=== PATIENT | female | born 1975 | race African-American/Black ===

== ENCOUNTER 2023-04-08 15:17 | Emergency (ER) | payer BC, OTHER ==
[~2023-04-08 15:17] MED LIST: Iopamidol 370 76% 100 ML VIAL ONE
[2023-04-08] MEDS ORDERED: Ketorolac Tromethamine 30 MG/ML VIAL ONE (16:07)
[2023-04-08 16:26] LABS: #Eosinphils 0.1 10x3/uL (0.0-0.5); #Monocytes 0.5 10x3/uL (0.0-1.1); #Neutrophils 5.7 10x3/uL (1.5-8.4); %Basophils 0.2 % (0.0-2.0); %Eosinophils 1.5 % (0.0-6.0); %Lymphocytes 21.6 % (18.0-47.0); %Monocytes 6.4 % (0.0-10.0); %Neutrophils 70.2 % (40.0-75.0); Hemoglobin 11.9 g/dL (12.0-15.5); Mean Corpuscular HGB CONC 31.3 g/dL (32.0-36.0); Mean Corpuscular Hemoglobin 29.9 pg (27.0-33.0); Mean Corpuscular Volume 95.5 fl (81.6-98.3); Mean Platelet Volume 9.4 fl (7.4-10.4); Platelet Count 232 10x3/uL (150-450); RBC Distribution Width 14.5 % (11.5-14.5); Red Blood Cell (RBC) Count 3.98 10x6/uL (3.90-5.03); White Blood Cell (WBC) Count 8.1 10x3/uL (3.5-10.5)
[2023-04-08 16:40] LABS: ALT (SGPT) 26 U/L (8-55); AST (SGOT) 21 U/L (5-34); Albumin 4.3 g/dL (3.5-5.0); Alkaline Phosphatase 67 U/L (40-110); Anion Gap 14 mmol/L (10-20); BUN (Urea Nitrogen) 14 mg/dL (7.0-18.7); Bilirubin, Total 0.4 mg/dL (0.2-1.2); Calc. Creatinine Clearance 0 mL/min (70-130); Calcium 8.9 mg/dL (7.8-10.44); Carbon Dioxide 32 mmol/L (22-29); Chloride 101 mmol/L (98-107); Estimated GFR 71; Globulin 2.9 g/dL (2.4-3.5); Glucose 94 mg/dL (70-105); Potassium 4.6 mmol/L (3.5-5.1); Protein, Total 7.2 g/dL (6.0-8.3); Sodium 142 mmol/L (136-145)
[2023-04-08] MEDS ORDERED: Labetalol HCl 100 MG/20 ML VIAL ONE (17:30)
== END 2023-04-08 20:08 | disposition home or self-care (01) ==
LOC: CSHERS 15:17
DX: S13.4XXA Sprain of ligaments of cervical spine, initial encounter (principal); I10 Essential (primary) hypertension; E11.40 Type 2 diabetes mellitus with diabetic neuropathy, unspecified; V49.40XA Driver injured in collision with unspecified motor vehicles in traffic accident, initial encounter
CPT/HCPCS: 71045; 71275; 80053; 83605; 84484; 85025; 85379; 93005; 96361; 96374; 96375; J1885; Q9967

== ENCOUNTER 2023-11-29 13:51 | Observation (INO) | payer BC ==
[2023-11-29 16:30] LABS: SARS-CoV-2 NAA Rapid Test Not Detected (NotDetected)
[2023-11-29] MEDS ORDERED: Nitroglycerin 0.4 MG TAB 1 EACH ONE (16:33)
[2023-11-29] MEDS ORDERED: Aspirin Chewable 81 MG TAB ONE (16:33)
[2023-11-29 16:42] LABS: #Monocytes 0.7 10x3/uL (0.0-1.1); #Neutrophils 9.1 10x3/uL (1.5-8.4); %Basophils 0.3 % (0.0-2.0); %Eosinophils 0.3 % (0.0-6.0); %Lymphocytes 14.8 % (18.0-47.0); %Monocytes 5.9 % (0.0-10.0); %Neutrophils 78.4 % (40.0-75.0); Hematocrit 37.9 % (34.9-44.5); Hemoglobin 12.5 g/dL (12.0-15.5); Mean Corpuscular Hemoglobin 31.6 pg (27.0-33.0); Mean Corpuscular Volume 95.7 fl (81.6-98.3); Mean Platelet Volume 9.5 fl (7.4-10.4); Platelet Count 294 10x3/uL (150-450); RBC Distribution Width 14.9 % (11.5-14.5); Red Blood Cell (RBC) Count 3.96 10x6/uL (3.90-5.03); White Blood Cell (WBC) Count 11.6 10x3/uL (3.5-10.5)
[2023-11-29 16:50] LABS: ALT (SGPT) 16 U/L (8-55); AST (SGOT) 18 U/L (5-34); Alkaline Phosphatase 78 U/L (40-110); Anion Gap 11 mmol/L (10-20); BUN (Urea Nitrogen) 16 mg/dL (7.0-18.7); Bilirubin, Total 0.2 mg/dL (0.2-1.2); Calc. Creatinine Clearance 0 mL/min (70-130); Calcium 9.4 mg/dL (7.8-10.44); Carbon Dioxide 32 mmol/L (22-29); Chloride 103 mmol/L (98-107); Estimated GFR 59; Globulin 3.7 g/dL (2.4-3.5); Glucose 107 mg/dL (70-105); Potassium 4.3 mmol/L (3.5-5.1); Protein, Total 7.7 g/dL (6.0-8.3); Sodium 142 mmol/L (136-145)
[2023-11-29 16:57] LABS: Troponin I Less than 0.010 ng/mL (< 0.028)
[2023-11-29] MEDS ORDERED: Labetalol HCl 100 MG/20 ML VIAL ONE (17:34)
[2023-11-29] MEDS: Levothyroxine Sodium 50 MCG TAB PO SCH (19:18)
[2023-11-29] MEDS: Lisinopril 20 MG TAB PO SCH (19:18)
[2023-11-29] MEDS ORDERED: cefTRIAXone (ROCEPHIN) 2 GM VIAL ONE (20:51)
[2023-11-29] MEDS ORDERED: Azithromycin 500 MG VIAL ONE (20:51)
[2023-11-29] MEDS ORDERED: Ondansetron PF 4 MG/2 ML Vial IVP PRN (21:42)
[2023-11-29] MEDS ORDERED: Ondansetron ODT 4 MG TAB PO PRN (21:42)
[2023-11-29] MEDS ORDERED: Acetaminophen 650 MG Suppository PR PRN (21:42)
[2023-11-29 22:16] VITALS: BMI 66.6
[2023-11-29] MEDS ORDERED: Zolpidem Tartrate 5 MG TAB ONE (22:19)
[2023-11-29] MEDS: Zolpidem Tartrate 5 MG TAB PO PRN (22:20)
[2023-11-30 04:12] LABS: #Eosinphils 0.1 10x3/uL (0.0-0.5); #Monocytes 0.7 10x3/uL (0.0-1.1); #Neutrophils 7.1 10x3/uL (1.5-8.4); %Basophils 0.3 % (0.0-2.0); %Eosinophils 0.6 % (0.0-6.0); %Lymphocytes 22.3 % (18.0-47.0); %Monocytes 6.6 % (0.0-10.0); %Neutrophils 69.9 % (40.0-75.0); Hematocrit 35.4 % (34.9-44.5); Hemoglobin 11.2 g/dL (12.0-15.5); Mean Corpuscular HGB CONC 31.6 g/dL (32.0-36.0); Mean Corpuscular Hemoglobin 30.7 pg (27.0-33.0); Mean Platelet Volume 9.3 fl (7.4-10.4); Platelet Count 285 10x3/uL (150-450); RBC Distribution Width 15.1 % (11.5-14.5); Red Blood Cell (RBC) Count 3.65 10x6/uL (3.90-5.03); White Blood Cell (WBC) Count 10.1 10x3/uL (3.5-10.5)
[2023-11-30 04:24] LABS: Anion Gap 12 mmol/L (10-20); BUN (Urea Nitrogen) 14 mg/dL (7.0-18.7); Calc. Creatinine Clearance 185 mL/min (70-130); Calcium 8.8 mg/dL (7.8-10.44); Carbon Dioxide 32 mmol/L (22-29); Chloride 102 mmol/L (98-107); Estimated GFR 74; Glucose 108 mg/dL (70-105); Potassium 3.7 mmol/L (3.5-5.1); Sodium 142 mmol/L (136-145)
[2023-11-30] MEDS: Levothyroxine Sodium 125 MCG TAB PO SCH (06:15)
[2023-11-30 06:34] VITALS: BP 147/96
[2023-11-30] MEDS ORDERED: Acetaminophen 325 MG TAB ONE (08:04)
[2023-11-30] MEDS: Lisinopril 20 MG TAB PO SCH (08:21)
[2023-11-30] MEDS: Acetaminophen 325 MG TAB PO PRN (08:23)
[2023-11-30] MEDS ORDERED: Sodium Chloride 0.9% 500 ML IV SCH (11:00)
[2023-11-30] MEDS ORDERED: Metoprolol Tartrate 25 MG TAB PO SCH (11:00)
[2023-11-30 13:27] LABS: Hemoglobin A1c 5.5 % (4.0-6.0)
[2023-11-30] MEDS ORDERED: Azithromycin 500 MG in Sodium Chloride 0.9% 250 ML 250 ML IVPB SCH (21:00)
[2023-11-30] MEDS ORDERED: cefTRIAXone\\ROCEPHIN 1 GM in Sodium Chloride 0.9% 100 ML IVPB SCH (22:00)
== END 2023-11-30 12:37 | disposition left against medical advice (07) ==
LOC: CSHERS 13:51 → CSHERHOLD 20:56
PROVIDERS: ADMIT Student in an Organized Health Care Education/Training Program; ATTEND Physician Assistant
DX: J18.9 Pneumonia, unspecified organism (principal); E11.40 Type 2 diabetes mellitus with diabetic neuropathy, unspecified; I16.0 Hypertensive urgency; I10 Essential (primary) hypertension; E03.9 Hypothyroidism, unspecified; R00.0 Tachycardia, unspecified; E66.01 Morbid (severe) obesity due to excess calories; Z68.44 Body mass index [BMI] 60.0-69.9, adult
CPT/HCPCS: 36415; 71045; 71275; 80048; 80053; 83036; 83880; 84443; 84484; 85025; 85379; 87040; 93005; 93010; 94660; 96365; 96375; 96376; G0378; J0456; J0696; Q9967